=== PATIENT | male | born 1945 | race Caucasian/White ===

== ENCOUNTER 2024-05-25 11:39 | Emergency (ER) | payer MEDICARE ==
[2024-05-25] MEDS ORDERED: Sodium Chloride 0.9% 10 ML Syringe FLUSH PRN (11:41)
[2024-05-25] MEDS: Albuterol/Ipratropium 3.0-0.5 MG/3 ML Neb Soln NEB ONE (11:58)
[2024-05-25] MEDS: methylPREDNISolone Sodium Succinate 125 MG/2 ML SDV IVPUSH ONE (12:07)
[2024-05-25] MEDS: Sodium Chloride 0.9% 1,000 ML IV ONE ×2 (12:07→13:16)
[2024-05-25] MEDS: Magnesium Sulfate/Water Premix 2 GM/50 ML BAG IV SCH (12:08)
[2024-05-25 12:23] LABS: BASE EXCESS ARTERIAL -18.5 (-2-2.0); BICARBONATE,ARTERIAL 10.8 meq/L (22.0-26.0); O2 SATURATION ARTERIAL 56.3 % (96.0-97.0); PCO2 ARTERIAL 41.9 mmHg (35.0-45.0)
[2024-05-25 12:34] LABS: HEMATOCRIT 35.8 % (42.0-52.0); HEMOGLOBIN 11.6 gm/dl (14.0-18.0); MEAN CORPUSCULAR HEMOGLOBIN 31.6 pg (28.0-32.0); MEAN CORPUSCULAR HGB CONC 32.4 g/dl (32.0-36.0); MEAN CORPUSCULAR VOLUME 97.5 fl (83.0-99.0); MEAN PLATELET VOLUME 10.9 fl (9.4-12.4); PLATELET COUNT,PLT 151 K/mm3 (150-400); RED BLOOD CELL COUNT 3.67 M/mm3 (4.52-5.90)
[2024-05-25] MEDS: cefTRIAXone 2 GM Vial IVPUSH ONE (12:41)
[2024-05-25 13:40] LABS: LACTIC ACID 1.8 mmol/L (0.4-2.0)
[2024-05-25 13:47] LABS: A/G RATIO 0.5 (1-2); ALANINE AMINOTRANSFERASE,ALT 19 U/L (16-63); ALBUMIN 2.2 g/dl (3.4-5.0); ALKALINE PHOSPHATASE 52 U/L (46-116); ANION GAP 22.2 (5-15); ASPARTATE AMNIOTRANSFERASE,AST 45 U/L (15-37); BILIRUBIN TOTAL 0.5 mg/dL (0.2-1.0); BLOOD UREA NITROGEN,BUN 109 mg/dL (7-18); BUN/CREATININE RATIO 17.3 (14-18); C-REACTIVE PROTEIN 23.83 mg/dL (<0.30); CALCIUM 8.3 mg/dL (8.5-10.1); CARBON DIOXIDE,CO2 14 mEq/L (21-32); CHLORIDE,CL 97 mEq/L (98-107); CREATININE 6.3 mg/dL (0.7-1.3); ESTIMATED GFR 8 mL/min (>60); GLUCOSE RANDOM 89 mg/dL (70-99); POTASSIUM,K 5.2 mEq/L (3.5-5.1); PROTEIN TOTAL,TP 6.6 g/dl (6.4-8.2); SODIUM,NA 128 mEq/L (136-145); TROPONIN I HIGH SENSITIVITY 36 pg/mL (<=76)
[2024-05-25 13:58] LABS: BAND PERCENT MAN 12 % (0-10); BASOPHILS PERCENT MAN 0 (0.2-1.2); EOSINOPHILS PERCENT MAN 0 % (0.8-7.0); LYMPHOCYTES % ATYPICAL MANUAL 0 %; LYMPHOCYTES PERCENT MAN 15 % (20-40); MONOCYTES PERCENT MAN 3 % (2-10); MYELOCYTE PERCENT MAN 1
[2024-05-25 13:58] LABS: INR 1.08; PROTHROMBIN TIME 11.4 SECONDS (9.7-12.0)
[2024-05-25 14:07] LABS: PLATELET COUNT ESTIMATE ADEQUATE
[2024-05-25 14:39] LABS: RETICULOCYTE COUNT PERCENT 1.54 % (0.50-2.00)
[2024-05-25] MEDS: Lactated Ringers 500 ML IV ONE (14:40)
[2024-05-25 16:18] LABS: BASE EXCESS ARTERIAL -18.6 (-2-2.0); BICARBONATE,ARTERIAL 10.7 meq/L (22.0-26.0); O2 SATURATION ARTERIAL 98.7 % (96.0-97.0); PCO2 ARTERIAL 39.2 mmHg (35.0-45.0)
[2024-05-25] MEDS: Sodium Chloride 0.9% 500 ML ONE (16:24)
[2024-05-25 16:34] LABS: APPEARANCE,URINE SLT CLOUDY (Clear); BILIRUBIN,URINE NEGATIVE (Negative); COLOR,URINE YELLOW (Yellow); GLUCOSE,URINE NEGATIVE (Negative); KETONES,URINE NEGATIVE (Negative); LEUKOCYTE ESTERASE,URINE 1+ (Negative); NITRITE,URINE NEGATIVE (Negative); OCCULT BLOOD,URINE 1+ (Negative); PH,URINE 5.5 (5.0-8.0); PROTEIN,URINE 2+ (Negative); UROBILINOGEN,URINE 0.2 (0.2-1.0)
[2024-05-25] MEDS: Piperacillin/Tazobactam 4.5 GM in Sodium Chloride 0.9% 100 ML IV ONE (16:38)
[2024-05-25 16:49] LABS: BACTERIA,URINE MANY /hpf (FEW); EPITHELIAL CELLS,URINE 0-5 /hpf (0-5); RBC,URINE 0-5 /hpf (0-5)
[2024-05-25 16:50] LABS: MUCUS,URINE FEW /hpf (FEW)
[2024-05-26 12:41] LABS: NEUTROPHILS% 37 % (41-71)
== END 2024-05-25 18:25 ==
LOC: JD.ED 11:39
DX: J96.01 Acute respiratory failure with hypoxia (principal)
CPT/HCPCS: 36415; 36556; 36600; 71045; 80053; 81001; 82803; 83605; 83880; 84484; 85007; 85027; 85045; 85610; 86140; 87040; 87428; 93005; 94640; 94660; 96365; 96366; 96367; 96368; 96375; 99285; J0696; J2543; J2919; J3475; J7030; J7120; 93010; J7620-GY

== ENCOUNTER 2025-01-30 14:58 | Emergency (ER) | payer MEDICARE, OTHER ==
[2025-01-30] MEDS ORDERED: Sodium Chloride 0.9% 10 ML Syringe FLUSH PRN (15:34)
[2025-01-30 16:31] LABS: BASOPHILS ABSOLUTE AUTO 0.0 K/mm3 (0.0-0.2); BASOPHILS PERCENT AUTO 0.4 % (0.0-1.0); EOSINOPHILS ABSOLUTE AUTO 0.3 K/mm3 (0.0-0.4); EOSINOPHILS PERCENT AUTO 2.5 % (0.0-6.0); IMMATURE GRAN ABSOLUTE AUTO 0.04 K/mm3 (0.00-0.05); IMMATURE GRAN PERCENT AUTO 0.4 % (0.0-0.4); LYMPHOCYTES ABSOLUTE AUTO 2.9 K/mm3 (1.0-4.8); LYMPHOCYTES PERCENT AUTO 28.7 % (24.0-44.0); MEAN PLATELET VOLUME 9.8 fl (9.4-12.4); MONOCYTES ABSOLUTE AUTO 1.0 K/mm3 (0.0-0.8); MONOCYTES PERCENT AUTO 9.4 % (0.0-8.0); NEUTROPHILS ABSOLUTE AUTO 5.9 K/mm3 (1.8-7.7); NEUTROPHILS PERCENT AUTO 58.6 % (41.0-71.0); NRBC ABSOLUTE 0.00 (0.00-0.02); NRBC PERCENT 0.0 % (0.0-0.2); PLATELET COUNT,PLT 217 K/mm3 (150-400); RED BLOOD CELL COUNT 3.75 M/mm3 (4.52-5.90); WHITE BLOOD CELL COUNT,WBC 10.11 K/mm3 (3.9-11.3)
[2025-01-30 16:43] LABS: CORONAVIRUS COVID-19 NAA NEGATIVE (NEGATIVE); INFLUENZA A NAA NEGATIVE (NEGATIVE); RESPIRATORY SYNCYTIAL VIR NAA NEGATIVE (NEGATIVE)
[2025-01-30 16:48] LABS: A/G RATIO 0.5 (1-2); ALANINE AMINOTRANSFERASE,ALT 20.0 U/L (16-63); ASPARTATE AMNIOTRANSFERASE,AST 22.0 U/L (15-37); BILIRUBIN TOTAL 0.6 mg/dL (0.2-1.0); BLOOD UREA NITROGEN,BUN 52.0 mg/dL (7-18); CARBON DIOXIDE,CO2 24.0 mEq/L (21-32); CHLORIDE,CL 101.0 mEq/L (98-107); CREATININE 2.7 mg/dL (0.7-1.3); EST CRCL DRUG DOSING (CG) 20.06 mL/min; ESTIMATED GFR 23.0 mL/min (>60); GLUCOSE RANDOM 109.0 mg/dL (70-99); POTASSIUM,K 4.1 mEq/L (3.5-5.1); PROTEIN TOTAL,TP 8.3 g/dl (6.4-8.2); SODIUM,NA 136.0 mEq/L (136-145)
[2025-01-30] MEDS: Amoxicillin/Clavulanate K 500-125 MG Tab PO ONE (17:32)
== END 2025-01-30 18:10 | disposition home or self-care (01) ==
LOC: JD.ED 14:58
DX: J01.90 Acute sinusitis, unspecified (principal); J44.9 Chronic obstructive pulmonary disease, unspecified; Z86.73 Personal history of transient ischemic attack (TIA), and cerebral infarction without residual deficits
CPT/HCPCS: 36415; 71045; 80053; 85025; 86140; 87637; 87651; 99284; A9270; 99283